=== PATIENT | male | born 1985 | race Caucasian/White ===

== ENCOUNTER 2016-07-21 04:29 | Emergency (ER) | payer OTHER ==
[2016-07-21 05:10] LABS: ABSOLUTE BASOPHIL COUNT 0.1 /CUMM (0.0-0.2); ABSOLUTE EOSINOPHIL COUNT 0.5 /CUMM (0.0-0.7); ABSOLUTE GRANULOCYTE CT 10.2 /CUMM (1.4-6.5); ABSOLUTE LYMPH COUNT 0.8 /CUMM (1.2-3.4); ABSOLUTE MONOCYTE COUNT 0.7 /CUMM (0.10-0.60); BASOPHIL % 0.4 % (0.0-2.0); EOSINOPHIL % 3.8 % (0-5); HEMATOCRIT 49.6 % (42-52); MEAN CORPUSCULAR HGB 27.6 PG (27.0-31.0); MEAN CORPUSCULAR HGB CONC 33.8 G/DL (33.0-37.0); MEAN CORPUSCULAR VOLUME 81.6 FL (80.0-94.0); MEAN PLATELET VOLUME 9.8 FL (7.4-10.4); PLATELET COUNT 273 /CUMM (130-400); RBC DISTRIBUTION WIDTH 13.3 % (11.5-14.5); RED BLOOD CELL CT 6.08 /CUMM (4.70-6.10); WHITE BLOOD CELL COUNT 12.2 /CUMM (4.8-10.8)
[2016-07-21 05:11] LABS: GRANULOCYTE % 83.8 % (42.2-75.2)
[2016-07-21] MEDS ORDERED: ZOFRAN ODT4 M1 SL (06:01)
[2016-07-21] MEDS ORDERED: LEVSIN-SL0.125 MG SL (06:01)
--- NOTE | 2016-07-21 06:01 | ED GI/GU/ABDOMINAL COMPLAINT ---
History of Present Illness General Chief Complaint: General Adult Stated Complaint: N/D/VOMITING BLOOD Source: patient, family, old records Exam Limitations: no limitations Vital Signs & Intake/Output Vital Signs & Intake/Output Vital Signs Date Time Temp Pulse Resp B/P Pulse O2 O2 Flow FiO2 Ox Delivery Rate 07/21 0522 98 07/21 0442 98.7 120 22 128/87 97 Room Air Allergies Coded Allergies: No Known Allergies (07/21/16) Reconcile Medications Hyoscyamine Sulfate (Levsin-Sl) 0.125 MG TAB.SUBL 1-2 TAB SL Q4P PRN abdominal pain Ondansetron (Zofran Odt) 4 MG TAB.RAPDIS 1 TAB SL TID PRN nausea Triage Note: PER PT VOMITING AND DIARRHEA SINCE 89, NOW VOMITING BLOOD. Triage Nurses Notes Reviewed? yes Onset: Just prior to arrival Duration: hour(s):, waxing and waning Timing: recent history Quality/Severity: cramping, moderate, vomiting Location: generalized abdomen Radiation: no radiation Activities at Onset: none Prior Abdominal Problems: none Past Sexual History: Unobtainable at this time Associated Symptoms: abdominal pain, diarrhea, loss of appetite, nausea/vomiting HPI: Several days prior to admission patient complains of nasal congestion cough. Significant other ill with abdominal pain diarrhea. 4 hours prior to admission patient awoke with nausea vomiting frequent loose watery stools generalized abdominal cramping mild to moderate in severity nonradiating improved with vomiting or stooling. Prior to admission he had another episode of nausea vomiting with blood and mucus. He denies fever chills chest pain shortness of breath headache dysuria rash Past History Travel History Traveled to [place] past 21 day No Medical History Any Pertinent Medical History? see below for history Neurological: NONE EENT: NONE Cardiovascular: NONE Respiratory: asthma Gastrointestinal: NONE Hepatic: NONE Renal: NONE Musculoskeletal: NONE Psychiatric: NONE Endocrine: NONE Surgical History Surgical History: non-contributory Psychosocial History What is your primary language Serbian Tobacco Use: Current Daily Use Daily Tobacco Use Amount/Type: => 5 Cigarettes daily Family History Hx Contributory? No Review of Systems Review of Systems Constitutional: Reports: no symptoms. EENTM: Reports: see HPI, nasal congestion. Respiratory: Reports: see HPI, cough. Cardiovascular: Reports: no symptoms. GI: Reports: see HPI, abdominal pain, diarrhea, nausea, vomiting. Genitourinary: Reports: no symptoms. Musculoskeletal: Reports: no symptoms. Skin: Reports: no symptoms. Neurological/Psychological: Reports: no symptoms. Hematologic/Endocrine: Reports: no symptoms. Immunologic/Allergic: Reports: no symptoms. All Other Systems: Reviewed and Negative Physical Exam Physical Exam General Appearance: well developed/nourished, alert, awake, anxious, moderate distress Head: atraumatic, normal appearance Eyes: Bilateral: normal appearance, PERRL, EOMI, normal inspection. Ears, Nose, Throat, Mouth: hearing grossly normal, moist mucous membrane Neck: normal inspection, supple, full range of motion, normal alignment Respiratory: chest non-tender, no respiratory distress, decreased breath sounds, wheezing Cardiovascular: regular rate/rhythm, normal peripheral pulses, norml femoral pulses equa Peripheral Pulses: 4+ carotid (R), 4+ carotid (L) Gastrointestinal: soft, non-tender, no organomegaly, abnormal bowel sounds Male Genitals: normal genitalia Back: normal inspection, normal range of motion Extremities: normal range of motion, no ligament instability Neurologic/Psych: no motor/sensory deficits, awake, alert, oriented x 3, normal gait, normal mood/affect, 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 No Severe Sepsis Present: No Septic Shock Present: No Progress Differential Diagnosis: gastritis, pancreatitis Plan of Care: Orders Procedure Date/time Status URINALYSIS 07/21 453 Active MAGNESIUM 07/21 453 Complete LIPASE 07/21 453 Complete COMPREHENSIVE METABOLIC PANEL 07/21 453 Complete CBC WITHOUT DIFFERENTIAL 07/21 453 Complete AMYLASE 07/21 453 Complete Laboratory Tests 07/21/16 0503: Anion Gap 12, Estimated GFR > 60, BUN/Creatinine Ratio 13.3, Glucose 126 H, Calcium 9.6, Magnesium 1.8, Total Bilirubin 0.8, AST 27, ALT 41, Alkaline Phosphatase 108, Total Protein 7.7, Albumin 4.7, Globulin 3.0, Albumin/Globulin Ratio 1.6, Amylase 52, Lipase 139, CBC w Diff NO MAN DIFF REQ, RBC 6.08, MCV 81.6, MCH 27.6, RDW 13.3, MPV 9.8, Gran % 83.8 H, Lymphocytes % 6.4 L, Monocytes % 5.6, Eosinophils % 3.8, Basophils % 0.4, Absolute Granulocytes 10.2 H, Absolute Lymphocytes 0.8 L, Absolute Monocytes 0.7 H, Absolute Eosinophils 0.5, Absolute Basophils 0.1, PUBS MCHC 33.8 Initial ED EKG: none Departure Departure Time of Disposition: 0600 Disposition: HOME OR SELF CARE Condition: Stable Clinical Impression Primary Impression: Gastroenteritis Referrals: PATIENT HAS NO PRIMARY CARE DR (PCP/Family) Departure Forms: Customer Survey General Discharge Information RELEASE- WORK Prescriptions: Current Visit Scripts Ondansetron (Zofran Odt) 1 TAB SL TID PRN nausea #15 TAB Hyoscyamine Sulfate (Levsin-Sl) 1-2 TAB SL Q4P PRN abdominal pain #30 TAB
[2016-07-21 06:32] VITALS: BP 130/70
== END 2016-07-21 06:35 ==
LOC: ERH 04:29
PROVIDERS: Emergency Medicine
DX: K52.9 Noninfective gastroenteritis and colitis, unspecified (principal); R19.7 Diarrhea, unspecified; K92.0 Hematemesis
CPT/HCPCS: 1263; 1395; 96374; J2405